=== PATIENT | female | born 1970 | race Two or more races ===

== ENCOUNTER 2016-11-29 17:26 | Emergency (ER) | payer OTHER ==
[~2016-11-29] VITALS: Ht 157.5 cm; Wt 63.5 kg
[2016-11-29 18:00] VITALS: BP 178/81
[2016-11-29] MEDS ORDERED: METOPROLOL TART25 MG ORAL (18:06)
[2016-11-29 20:00] VITALS: BP 168/83
[2016-11-29 20:37] LABS: APPEARANCE,URINE CLEAR; KETONES,URINE NEGATIVE (NEGATIVE); LEUKOCYTE ESTERASE ,URINE NEGATIVE (NEGATIVE); NITRITE,URINE NEGATIVE (NEGATIVE); PH,URINE 6 (4.5-8.0); PROTEIN,URINE NEGATIVE (NEGATIVE); UROBILINOGEN,URINE NORMAL MG/DL (0.0-1.0)
[2016-11-29 21:05] LABS: ALANINE AMINOTRANSFERASE 53 U/L (3-33); ALBUMIN/GLOBULIN RATIO 1.4 (1.0-2.7); ANION GAP 13 (5-15); ASPARTATE AMINO TRANSFERASE 34 U/L (5-40); CALCIUM 9.8 mg/dL (8.6-10.2); CARBON DIOXIDE 24 mEQ/L (20-30); CHLORIDE 104 mEQ/L (98-107); CREATININE 0.5 mg/dL (0.5-0.9); GLOMERULAR FILTRATION RATE > 60 mL/min (>60); HEMOLYSIS 12; POTASSIUM 3.9 mEQ/L (3.4-4.9); SODIUM 141 mEQ/L (135-145); TOTAL PROTEIN 7.4 g/dL (6.6-8.7)
[2016-11-29] MEDS ORDERED: NORVASC5 MG ORAL (21:16)
[2016-11-29 21:32] VITALS: BP 162/80
[2016-11-29 21:33] VITALS: BP 177/88
--- NOTE | 2016-11-29 21:46 | Emergency Room Report ---
History of Present Illness General Chief Complaint: Hypertension Source: Patient Present Illness HPI 46 YO F with concern for elevated BP. Has been taking metoprolol 25mg BID for 3 -4 years. Has been compliant. Saw new PMD yesterday, who didnt make any changes to BP meds. Told patient if worse, to go to ER. She came today because she "felt that her" BP was higher but here denies chest pain, SOB, flank pain, headache. Denies smoking, ETOH, other drugs. Denies other medical problems, DM, CKD. Allergies: Coded Allergies: No Known Allergies (Unverified , 11/29/16) Patient History Past Medical History: HTN Past Surgical History: none Pertinent Family History: none Social History: Denies: alcohol use, drug use, smoking Last Menstrual Period: 10/30/14 Now: No Immunizations: UTD Reviewed Nursing Documentation: PMH: Agreed, PSxH: Agreed Nursing Documentation-PMH Hx Hypertension: Yes Review of Systems All Other Systems: negative except mentioned in HPI Physical Exam Vital Signs Date Time Temp Pulse Resp B/P Pulse Ox O2 Delivery O2 Flow Rate FiO2 11/29/16 17:34 97.9 71 15 181/106 95 Room Air Sp02 EP Interpretation: reviewed, abnormal General Appearance: normal inspection, well appearing, no apparent distress, alert, GCS 15, non-toxic Head: normocephalic, atraumatic Eyes: bilateral eye EOMI, bilateral eye PERRL ENT: normal ENT inspection, hearing grossly normal, normal voice Neck: normal inspection, full range of motion, supple, no bony tend Respiratory: normal inspection, lungs clear, normal breath sounds, no respiratory distress, no retraction, no wheezing Cardiovascular #1: regular rate, rhythm, no edema Gastrointestinal: normal inspection, normal bowel sounds, non tender, soft, no guarding, no hernia Genitourinary: no CVA tenderness Musculoskeletal: normal inspection, back normal, normal range of motion, Robbin' s Sign negative Neurologic: alert, oriented x3, responsive, 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 Elevated BP here, was improving prior to MD evaluation. DBP consistently below 100. Asymptomatic Checked CMP and UA which are normal. No MERCED. No protein in urine ECG is NSR, no ischemia I doubt end-organ damage Patient is not happy with new PMD, thinks Metoprolol is not working, was expecting additional ED workup After much discussion with patient/, I am amenable to starting Norvasc IN ADDITION to continuing BID Metoprolol with assurance patient will followup with PMD for HTN monitoring Rx Norvasc PMD followup EKG Diagnostic Results Rate: normal Rhythm: NSR ST Segments: no acute changes ASA given to the pt in ED: No Rhythm Strip Diag. Results EP Interpretation: yes Rate: 48 Rhythm: NSR, no PVC's, no ectopy Last Vital Signs Date Time Temp Pulse Resp B/P Pulse Ox O2 Delivery O2 Flow Rate FiO2 11/29/16 21:33 97.9 69 16 177/88 100 Room Air 69 Status: improved Disposition: HOME, SELF-CARE Condition: Improved Scripts Amlodipine Besylate (Norvasc) 5 Mg Tablet 5 MG ORAL DAILY for 30 Days, #30 TAB Prov: KIARA GONZALEZ M.D. 11/29/16 Referrals: NON PHYSICIAN (PCP) Patient Instructions: Hypertension Additional Instructions: - Continue to take Metoprolol twice a day - ADD Norvasc 5mg once daily every morning - Follow up with your doctor in 1 week - PMD: BP is 178/81, 168/83 here in ED - Labs normal. KIARA GONZALEZ M.D. Nov 29, 2016 21:46
--- NOTE | 2016-11-30 14:16 | Cardiology Report ---
APPROVED REPORT EKG Measurement Heart [id number] Normal sinus rhythm Normal ECG
== END 2016-11-29 21:41 | disposition home or self-care (01) ==
LOC: EMR 18:20
DX: I10 Essential (primary) hypertension (principal); Z79.899 Other long term (current) drug therapy
CPT/HCPCS: 36415; 80053; 81003; 93005; 99283

== ENCOUNTER 2017-11-04 09:29 | Emergency (ER) | payer OTHER ==
[~2017-11-04] VITALS: Ht 157.5 cm; Wt 63.5 kg
[~2017-11-04 09:29] MED LIST: METOPROLOL TART25 MG ORAL; NORVASC5 MG ORAL
[2017-11-04 11:22] LABS: BASOPHILS % (AUTO) 0.9 % (0.0-2.0); EOSINOPHILS % (AUTO) 1.1 % (0.0-3.0); HEMATOCRIT 42.6 % (37.0-47.0); LYMPHOCYTES % (AUTO) 25.9 % (20.0-45.0); MEAN CORPUSCULAR VOLUME 96 FL (80-99); MONOCYTES % (AUTO) 8.1 % (1.0-10.0); PLATELET COUNT 252 K/UL (150-450); RED BLOOD COUNT 4.45 M/UL (4.20-5.40); RED CELL DISTRIBUTION WIDTH 11.9 % (11.6-14.8); WHITE BLOOD COUNT 6.2 K/UL (4.8-10.8)
[2017-11-04 11:25] LABS: APPEARANCE,URINE CLEAR; BILIRUBIN, URINE NEGATIVE (NEGATIVE); COLOR,URINE PALE YELLOW; GLUCOSE, URINE (UA) NEGATIVE (NEGATIVE); KETONES,URINE NEGATIVE (NEGATIVE); LEUKOCYTE ESTERASE ,URINE 3+ (NEGATIVE); NITRITE,URINE NEGATIVE (NEGATIVE); PH,URINE 6 (4.5-8.0); PROTEIN,URINE 2+ (NEGATIVE); UROBILINOGEN,URINE NORMAL MG/DL (0.0-1.0)
[2017-11-04 11:33] LABS: ANION GAP 9 mmol/L (5-15); BLOOD UREA NITROGEN 10 mg/dL (7-18); CALCIUM 8.8 MG/DL (8.5-10.1); CARBON DIOXIDE 25 MMOL/L (21-32); CHLORIDE 105 MMOL/L (98-107); CREATININE 0.6 MG/DL (0.55-1.30); POTASSIUM 4.4 MMOL/L (3.5-5.1); SODIUM 139 MMOL/L (136-145)
[2017-11-04 11:37] LABS: ALANINE AMINOTRANSFERASE 716 U/L (12-78); ALBUMIN 3.9 G/DL (3.4-5.0); ALKALINE PHOSPHATASE 245 U/L (46-116); ASPARTATE AMINO TRANSFERASE 380 U/L (15-37); BILIRUBIN,TOTAL 2.1 MG/DL (0.2-1.0)
[2017-11-04 11:49] LABS: BILIRUBIN,DIRECT 1.5 MG/DL (0.0-0.3)
[2017-11-04 12:00] VITALS: BP 142/80
--- NOTE | 2017-11-04 14:25 | Emergency Room Report ---
History of Present Illness General Chief Complaint: Pain Source: Patient, Family Member Present Illness HPI 46-year-old female with one month of intermittent epigastric pain Worse with eating no associated nausea vomiting diarrhea no sick contacts no History of gallbladder disease or peptic ulcer disease no previous abdominal pelvic surgery Allergies: Coded Allergies: No Known Allergies (Unverified , 11/29/16) Patient History Past Medical History: none Past Surgical History: none Pertinent Family History: none Social History: Denies: smoking, alcohol use, drug use Last Menstrual Period: 2014 Now: No Immunizations: UTD Reviewed Nursing Documentation: PMH: Agreed, PSxH: Agreed Nursing Documentation-PMH Hx Hypertension: Yes Review of Systems All Other Systems: negative except mentioned in HPI Physical Exam Vital Signs Date Time Temp Pulse Resp B/P (MAP) Pulse Ox O2 Delivery O2 Flow Rate FiO2 11/04/17 09:35 98.1 68 18 147/83 97 Room Air Sp02 EP Interpretation: reviewed, normal General Appearance: normal inspection, well appearing, no apparent distress, alert, GCS 15, non-toxic Head: normocephalic, atraumatic Eyes: bilateral eye PERRL, bilateral eye EOMI ENT: normal ENT inspection, hearing grossly normal, normal pharynx, no angioedema, normal voice, TMs + canals normal, uvula midline, moist mucus membranes Neck: normal inspection, full range of motion, supple, thyroid normal, no meningismus, no bony tend Respiratory: normal inspection, lungs clear, normal breath sounds, no rhonchi, no respiratory distress, no retraction, no accessory muscle use, no wheezing, speaking full sentences Cardiovascular #1: regular rate, rhythm, no edema, no JVD, normal capillary refill Gastrointestinal: normal inspection, normal bowel sounds, soft, no mass, no peritonitis, non-distended, no guarding, no hernia, no pulsatile mass, other - Mild epigastric tenderness to palpation Genitourinary: no CVA tenderness Musculoskeletal: normal inspection, back normal, normal range of motion, no calf tenderness, pelvis stable, Robbin's Sign negative Neurologic: normal inspection, alert, oriented x3, responsive, 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, motor strength/tone normal, cerebellar normal, normal gait, speech normal Psychiatric: normal inspection, judgement/insight normal, mood/affect normal, no suicidal/homicidal ideation, no delusions Skin: normal inspection, normal color, no rash Lymphatic: normal inspection, no adenopathy Medical Decision Making Diagnostic Impression: Primary Impression: Epigastric abdominal pain Additional Impression: UTI (urinary tract infection) Qualified Codes: N30.01 - Acute cystitis with hematuria ER Course labs show elevated bilirubin and elevated LFTs No leukocytosis Vital signs stable, afebrile Urine positive for multiple wbc's After IV Pepcid, patient pain free I doubt cholecystitis or appendicitis at this time UTI likely cause of patient's abdominal pain However given elevated bili and LFTs will need ultrasound Endorsed to Dr Castelan at 3pm to followup ultrasound result If neg, recommened DC with macrobid Last Vital Signs Date Time Temp Pulse Resp B/P (MAP) Pulse Ox O2 Delivery O2 Flow Rate FiO2 11/04/17 09:35 98.1 68 18 147/83 97 Room Air Status: improved Referrals: NOT CHOSEN KARLEE/,REFERRING (PCP) KIARA GONZALEZ M.D. Nov 04, 2017 14:25
[2017-11-04] MEDS ORDERED: NITROFURANTOIN100 M2 ORAL (14:26)
[2017-11-04 15:45] VITALS: BP 147/83
--- NOTE | 2017-11-08 10:35 | Diagnostic Imaging Report ---
Indication: Abdominal pain Technique: Ultrasound of the abdomen. Comparison: None Findings: The pancreas is incompletely visualized. Visualized portions are unremarkable. Liver measures 14.9 cm with increased echogenicity. No focal liver lesions are identified. Visualized portions of the main portal vein and the hepatic veins are grossly unremarkable although incompletely evaluated. Gallstones are present. Gallbladder wall thickness is within normal limits. Sonographic Barros's is negative. Common bile duct measures 7 mm. Bilateral kidneys demonstrate normal echogenicity. A small left renal cyst measures 1.1 cm. There is no hydronephrosis. No echogenic renal stones are identified. The spleen is normal in size and echogenicity. The visualized aorta is normal in caliber. Visualized portions of the inferior vena cava are unremarkable. Impression: Cholelithiasis. Sonographic Barros sign negative. Borderline prominence of the common bile duct measuring 7 mm. Further evaluation with MRCP recommended as indicated. Increased echogenicity of the liver suggestive of fatty infiltration. Small left renal cyst.
== END 2017-11-04 15:45 | disposition home or self-care (01) ==
LOC: EMR 10:16
DX: R10.13 Epigastric pain (principal); I10 Essential (primary) hypertension; N39.0 Urinary tract infection, site not specified
CPT/HCPCS: 36415; 76700; 80053; 81003; 82248; 83690; 85025; 96374; 99284; S0028